=== PATIENT | male | born 1965 | race Caucasian/White ===

== ENCOUNTER 2019-08-20 07:08 | Day surgery (SDC) | payer BC ==
[2019-08-20] VITALS (7 sets, daily range): BP systolic 139–175; BP diastolic 83–122
[~2019-08-20] VITALS: Ht 185.4 cm; Wt 95.1 kg
[~2019-08-20 07:08] MED LIST: DOCUMENT DATE & TIME OF BETA-BLOCKER PO ONE; METO50TA7 PO; O2 INH; cefazolin/dext.iso 2gm/50ml 50 ML IV ONE; famotidine 20mg tablet PO ONE; ringers solution, lacted 1,000 ML IV SCH
[2019-08-20] MEDS ORDERED: ringers solution, lacted 1,000 ML IV SCH (08:39)
[2019-08-20] MEDS ORDERED: proCHLORperazine 10 MG/2 ml inj IV PRN (08:40)
[2019-08-20] MEDS ORDERED: ondansetron/PF 4mg/2ml inj IV PRN (08:40)
[2019-08-20] MEDS ORDERED: morphine 4 MG/ML inj SYRINge IV PRN ×2 (08:40)
[2019-08-20] MEDS ORDERED: meperidine/PF 25mg/ml syringe IV PRN ×3 (08:40)
[2019-08-20] MEDS ORDERED: lisinopril 20mg tablet PO STA (08:48)
[2019-08-20 08:55] LABS: ALBUMIN 3.6 G/DL (3.4-5.0); ALKALINE PHOSPHATASE 87 IU/L (46-116); BLOOD UREA NITROGEN 8 MG/DL (7-18); BUN/CREATININE RATIO 9.6 (5.4-32.0); CALCIUM 8.4 MG/DL (8.5-10.1); CHLORIDE 107 MMOL/L (99-107); CREATININE 0.83 MG/DL (0.60-1.10); PRE OP ALT 41 U/L (30-65); PRE OP ANION GAP 9 (8-16); PRE OP AST 28 U/L (10-37); PRE OP BILIRUB, TOTAL 0.6 MG/DL (0.0-1.0); PRE OP GLUCOSE 88 MG/DL (70-104); PRE OP POTASSIUM 4.1 MMOL/L (3.4-5.1); PRE OP SODIUM 144 MMOL/L (135-145); TOTAL PROTEIN 7.2 G/DL (6.4-8.2); eGFR > 90 ML/MIN
[2019-08-20] MEDS ORDERED: albuterol 2.5 MG/3 ML nebule NEB ONE (09:20)
[2019-08-20 09:34] LABS: BASOPHILS % (AUTO) 0.5 % (0-1); EOSINOPHILS # (AUTO) 0.1 X10'3 (0-0.9); EOSINOPHILS % (AUTO) 2.2 % (0-6); LYMPHOCYTES # (AUTO) 1.3 X10'3 (1.1-4.8); LYMPHOCYTES % (AUTO) 20.8 % (21-51); MEAN CORPUSCULAR HEMOGLOBIN 35.1 PG (27.0-31.0); MEAN CORPUSCULAR HGB CONC 34.8 g/dL (33.0-36.5); MEAN CORPUSCULAR VOLUME 100.7 FL (78-98); MEAN PLATELET VOLUME 8.7 FL (7.4-10.4); MONOCYTES # (AUTO) 0.4 X10'3 (0-0.9); MONOCYTES % (AUTO) 6.2 % (2-12); NEUTROPHILS # (AUTO) 4.3 X10'3 (1.8-7.7); NEUTROPHILS % (AUTO) 70.3 % (42-75); PRE OP HEMATOCRIT 43.4 % (42.0-52.0); PRE OP HEMOGLOBIN 15.1 g/dL (14.0-17.9); PRE OP PLATELET COUNT 193 X10'3 (140-440); RED BLOOD COUNT 4.31 X10'6 (4.70-6.10); RED CELL DISTRIBUTION WIDTH 13.4 % (11.5-14.5)
[2019-08-20] MEDS ORDERED: labetalol 20mg/4ml (5mg/ml) syringe IV ONE (09:38)
[2019-08-20] MEDS ORDERED: dexamethasone sod phosphate 10mg/ml inj ONE (09:38)
[2019-08-20] MEDS ORDERED: ondansetron/PF 4mg/2ml inj ONE (09:38)
[2019-08-20] MEDS ORDERED: sevoflurane 250ml liquid IH ONE (09:38)
[2019-08-20] MEDS ORDERED: midazolam 2 mg/2 ml injection ONE (09:50)
[2019-08-20] MEDS ORDERED: fentaNYL/PF 50MCG/1 ML 2ML syringe ONE ×2 (09:50→10:15)
[2019-08-20] MEDS ORDERED: propofol inj 20 ML IV ONE ×2 (09:51→10:46)
[2019-08-20] MEDS ORDERED: LIDOcaine 2% (20mg/ml) 5ml vial ONE (09:51)
[2019-08-20] MEDS ORDERED: BUPIVAcaine/PF 2.5 mg/ml (0.25%) 30ml vial ONE (10:38)
[2019-08-20] MEDS ORDERED: ketorolac trometh. 30mg/ml inj. ONE (10:46)
--- NOTE | 2019-08-20 10:55 | NUR ---
Received from OR via BED , accompanied by Anesthesiologist DR MAYER and report given by Anesthesiolgist. PATIENT WAKING UP, DENIES PAIN, V/S WNL, NEUROVASCULAR CHECKS INTACT, 20G PIV LUE, SCD ON, POSTERIOR NECK DRESSING CDI.
--- NOTE | 2019-08-20 11:35 | NUR ---
PATIENT A&OX4, DENIES PAIN, V/S WNL, NEUROVASCULAR CHECKS INTACT, 20G PIV LUE D/C, SCD OFF,DRESSING TO NECK POSTERIOR CDI. I HAVE REVIEWED D/C INSTRUCTIONS WITH PATIENT AND FAMILY HAVE VERBALIZED UNDERSTANDING.PATIENT WAS D/C HOME WITH ALL BELONGINGS AND FAMILY GAVE TRANSPORT HOME.
== END 2019-08-20 11:35 | disposition home or self-care (01) ==
LOC: PAS 07:08
PROVIDERS: ATTEND Surgery
DX: L72.3 Sebaceous cyst (principal); I10 Essential (primary) hypertension; J44.9 Chronic obstructive pulmonary disease, unspecified; Z79.899 Other long term (current) drug therapy; F17.210 Nicotine dependence, cigarettes, uncomplicated; Z72.89 Other problems related to lifestyle; Z98.890 Other specified postprocedural states
CPT/HCPCS: 11406; 12032; 36415; 80053; 85025; 94640; J1100; J1885; J2001; J2250; J2405; J2704; J3010; J3490; J7120; A4618; A6258; A6449; A7000